=== PATIENT | male | born 1990 | race Caucasian/White ===

== ENCOUNTER 2020-05-18 20:34 | Emergency (ER) | payer MEDICAID ==
[~2020-05-18] VITALS: Ht 182.9 cm; Wt 99.7 kg
[2020-05-18 22:49] LABS: BASOPHILS % 0.4 % (0.0-2.0); HEMATOCRIT. 43.8 % (42.0-52.0); LYMPHOCYTES % 38.7 % (20.0-50.0); MEAN CORPUSCULAR HEMOGLOBIN 30.2 pg (28.0-32.0); MEAN CORPUSCULAR VOLUME 88.1 fL (80.0-94.0); MEAN PLATELET VOLUME 8.3 fl (7.4-10.4); MONOCYTES % 7.3 % (2.0-8.0); NEUTROPHILS % 47.6 % (40.0-76.0); PLATELET 174 x1000/uL (130-400); RED BLOOD CELL COUNT 4.97 mill/uL (4.7-6.1); RED CELL DISTRIBUTION WIDTH 12.7 % (11.6-14.6)
[2020-05-18 22:54] LABS: CHLORIDE 104 mEq/L (98-107)
[2020-05-19] MEDS ORDERED: LIDOCAINE 5% PATCH TOP SCH (01:00)
[2020-05-19] MEDS: IBUPROFEN 600MG TABLET PO NR ×2 (01:27→02:54)
[2020-05-19] MEDS ORDERED: LIDO700A15 TP (02:26)
[2020-05-19] MEDS ORDERED: IBUP-2029 MT (02:26)
[2020-05-19 02:54] VITALS: BP 140/90
== END 2020-05-19 02:50 | disposition home or self-care (01) ==
LOC: ER 20:34
DX: R07.89 Other chest pain (principal); R55 Syncope and collapse; I10 Essential (primary) hypertension; Z00.00 Encounter for general adult medical examination without abnormal findings
CPT/HCPCS: 36415; 71045; 80053; 83880; 84484; 85025; 93005; 99285